=== PATIENT | female | born 1950 | race Asian ===

== ENCOUNTER 2018-08-29 02:07 | Emergency (ER) | payer OTHER ==
[~2018-08-29] VITALS: Ht 160 cm; Wt 61.0 kg
[2018-08-29] MEDS ORDERED: SODIUM CHLORIDE FLUSH 10ML SYR IVF ONE (02:30)
[2018-08-29] MEDS ORDERED: ADENOSINE 6 MG/2 ML IVPush ONE ×2 (02:30)
[2018-08-29] MEDS ORDERED: SODIUM CHLORIDE 0.9% 1,000ML IVBOLUS ONE (02:30)
[2018-08-29] MEDS ORDERED: ADENOSINE 6 MG/2 ML ONE (02:35)
--- NOTE | 2018-08-29 02:38 | NUR ---
FIRST CONTACT WITH PT. PT. REPORTS YESTERDAY DEVELOPED ALL OVER BODY PAIN AND FEVERS. HAD BLADDER INFECTION AND HAS BEEN ON ANTIBIOTICS FOR 7 DAYS. FEVERS AT HOME. HR 170'S IN TRIAGE. DENIES CP. DENIES ANY PAIN AT THIS TIME. DENIES N/V/D. LAST TYLENOL AT 1600. PT'S AOX4. RESPS EVEN AND UNLABORED. ALL MONITORS IN PLACE. CALL LIGHT WITHIN REACH. EDMD AT BEDSIDE TO EVALUATE.
[2018-08-29 02:41] LABS: BASOPHILS # (AUTO) 0.02 x10^3/uL (0-0.1); BASOPHILS % (AUTO) 0 % (0-1); EOSINOPHILS # (AUTO) 0.34 x10^3/uL (0-0.4); EOSINOPHILS % (AUTO) 5 % (1-7); LYMPHOCYTES # (AUTO) 1.89 x10^3/uL (1-3.4); LYMPHOCYTES % (AUTO) 30 % (22-44); MD NO; MEAN CORPUSCULAR HEMOGLOBIN 30.6 pg (27.0-34.8); MEAN CORPUSCULAR HGB CONC 33.5 g/dL (32.4-35.8); MEAN CORPUSCULAR VOLUME 91.3 fL (80-100); MEAN PLATELET VOLUME 7.8 fL (7.4-10.4); MONOCYTES # (AUTO) 0.51 x10^3/uL (0.2-0.8); MONOCYTES % (AUTO) 8 % (2-9); NEUTROPHILS % (AUTO) 57 % (42-75); PLATELET COUNT 241 x10^3/uL (130-400); RED BLOOD COUNT 5.01 x10^6/uL (3.82-5.3)
[2018-08-29 02:53] LABS: ALANINE AMINOTRANSFERASE 67 U/L (12-78); ALBUMIN 3.7 g/dL (3.4-5.0); ANION GAP 8 mmol/L (5-15); CALCIUM 9.1 mg/dL (8.5-10.1); CHLORIDE 105 mmol/L (98-107)
--- NOTE | 2018-08-29 02:54 | NUR ---
PT MEDICATED PER EMAR BY EDMD. PT TOLERATED WELL. PT HAS NSR AT THIS TIME.
--- NOTE | 2018-08-29 03:01 | NUR ---
REPORT GIVEN TO MUKESH SCHULTZ
[2018-08-29 03:04] LABS: ALKALINE PHOSPHATASE 66 U/L (45-117); BILIRUBIN,TOTAL 0.8 mg/dL (0.2-1.0); CREATININE 0.93 mg/dL (0.55-1.02); T4 (THYROXINE) 12.7 mcg/dL (4.8-13.9); TOTAL PROTEIN 8.1 g/dL (6.4-8.2)
[2018-08-29 03:19] LABS: TROPONIN I < 0.015 ng/mL (0.000-0.045)
[2018-08-29] MEDS ORDERED: POTASSIUM CHLORIDE 20 MEQ TAB.ER.PRT PO ONE (03:30)
--- NOTE | 2018-08-29 03:32 | NUR ---
pt resting calmly in bed. pt assisted to bedside commode. pt steady on feet, able to void. pt stated she feels better at this time. pt hr improved, see charted vitals. at bedside. will continue to monitor.
[2018-08-29] MEDS ORDERED: POTASSIUM CHLORIDE 20 MEQ TAB.ER.PRT ONE (03:47)
[2018-08-29] MEDS ORDERED: AMLO-150 PO (03:53)
[2018-08-29] MEDS ORDERED: HYDR25TA6 PO (03:53)
--- NOTE | 2018-08-29 04:21 | NUR ---
pt was assisted to bedside commode again. pt stated she is feeling well, no c/o n.v, dizziness, c/p. bilat bedrails up. will continue to monitor.
[2018-08-29 04:49] VITALS: BP 126/85
== END 2018-08-29 05:03 | disposition home or self-care (01) ==
LOC: ED 04:46
DX: I47.1 Supraventricular tachycardia (principal); R00.2 Palpitations
CPT/HCPCS: 36415; 71045; 80053; 83735; 84436; 84443; 84484; 85025; 93005; 99284; J7030; 96360